=== PATIENT | female | born 1955 | race Caucasian/White ===

== ENCOUNTER 2016-10-26 08:25 | Emergency (ER) | payer BC ==
[~2016-10-26] VITALS: Ht 162.6 cm; Wt 104.4 kg
[2016-10-26 08:30] VITALS: BP 139/72; PULSE 87; RESP 16; TEMP 98.3; O2SAT 97
[2016-10-26] MEDS ORDERED: BACT800T5 PO (08:48)
--- NOTE | 2016-10-26 08:50 | PD ---
HPI Chief Complaint: Eye Problems/Injury Time Seen by Provider: 08:40 Travel History International Travel<30 days: No Contact w/Intl Traveler<30days: No Traveled to known affect area: No History of Present Illness HPI This patient complains of a stye in her left upper eyelid. Duration 4 days. It irritates her. No vision change. No fever. Symptoms severity is mild PFSH Past Medical History Hx Anticoagulant Therapy: No Cardiovascular Problems: Yes (HTN, CHOL) Diabetes: No ?: Not Social History Alcohol Use: No Tobacco Use: No Substance Use: No Allergies-Medications (Allergen,Severity, Reaction): Coded Allergies: Codeine (Verified Allergy, Severe, 10/26/16) Levaquin (Verified Allergy, Severe, 10/26/16) Morphine (Verified Allergy, Severe, 10/26/16) Review of Systems General / Constitutional: No: Fever HENT: No: Headaches Cardiovascular: No: Chest Pain or Discomfort Physical Exam Narrative SKIN: Focused skin assessment reveals no rash or ulcers. Skin is warm and dry. Palpation shows no induration or nodules. NECK: Symmetrical appearance, midline trachea. No mass or crepitus. Thyroid without enlargement, tenderness, or mass. Psych: Normal mood and affect. Normal insight and judgment. Bilateral eyes have clear sclerae with normal pupil function On the left upper eyelid is a stye with some minor erythema and irritation but no fluctuance or drainage Data Data Last Documented VS Vital Signs Date Time Temp Pulse Resp B/P Pulse Ox O2 Delivery O2 Flow Rate FiO2 10/26/16 08:30 98.3 87 16 139/72 97 MDM Medical Decision Making Medical Screen Exam Complete: Yes Emergency Medical Condition: Yes Medical Record Reviewed: Yes Differential Diagnosis Stye, hordeolum, conjunctivitis Narrative Course I have reviewed the patient's electronic medical record. Patient has left upper eyelid stye. She has tried warm compresses and waited 4 days and is wanting to try something more aggressive and have written her 1 week of Bactrim DS Diagnosis Primary Impression: Meibomian sty Qualified Code: H00.024 - Hordeolum internum of left upper eyelid Additional Instructions: The patient was advised to follow up with their physician and return if they worsen. Med/Other Pt SpecificInfo: Prescription(s) given Scripts Sulfamethoxazole-Trimethoprim (Bactrim DS)800-160 Mg Tab1 Tab PO BID #14 TAB Ref 0 Prov:Magdaleno Muniz MD 10/26/16 Disposition: 01 DISCHARGE HOME Condition: Stable Magdaleno Muniz MD Oct 26, 2016 08:50
[2016-10-26] MEDS ORDERED: PIND5 PO (08:53)
[2016-10-26] MEDS ORDERED: LEVO50TA4 PO (08:53)
[2016-10-26] MEDS ORDERED: MIDO10TA PO (08:53)
[2016-10-26] MEDS ORDERED: VENL75TA PO (08:53)
[2016-10-26] MEDS ORDERED: PRAM1 PO (08:53)
[2016-10-26] MEDS ORDERED: BENI5TAB4 PO (08:53)
[2016-10-26] MEDS ORDERED: SOMA250T PO (08:53)
[2016-10-26] MEDS ORDERED: ZOCAR PO (08:53)
[2016-10-26] MEDS ORDERED: [UNRECOGNIZED DRUG - CODE] PO (08:53)
[2016-10-27] MEDS ORDERED: ZOCO20TA PO (11:47)
== END 2016-10-26 09:13 | disposition home or self-care (01) ==
LOC: PHED 08:25
DX: H00.024 Hordeolum internum left upper eyelid (principal)
CPT/HCPCS: 99283